=== PATIENT | female | born 1940 | race Hispanic/Latino ===

== ENCOUNTER 2019-09-03 14:31 | Outpatient (CLI) | payer MEDICARE ==
--- NOTE | 2019-09-03 15:21 | XRay Report ---
CHEST 2 VIEWS INDICATION: EPIGASTRIC PAIN. COMPARISON: None FINDINGS: Support devices: None. Heart: Within normal limits. Lungs/pleura: No acute air space or interstitial disease. No pneumothorax. Additional findings: A large hiatal hernia containing a fluid level is noted posterior to the heart. IMPRESSION: Large hiatal hernia, otherwise, unremarkable chest films Signer Name: Shahab Felix Jr, MD Signed: 09/03/2019 3:17 PM Workstation Name: [id number]
== END 2019-09-03 14:32 | disposition home or self-care (01) ==
LOC: SPVIMAG 14:31
PROVIDERS: ATTEND Internal Medicine Hematology & Oncology
DX: C50.811 Malignant neoplasm of overlapping sites of right female breast (principal); R10.13 Epigastric pain; K44.9 Diaphragmatic hernia without obstruction or gangrene
CPT/HCPCS: 71046

== ENCOUNTER 2019-09-17 10:37 | Outpatient (CLI) | payer MEDICARE ==
--- NOTE | 2019-09-18 11:00 | Mammography Report ---
DIGITAL SCREENING MAMMOGRAM WITH TOMOSYNTHESIS WITH CAD, 09/17/2019 INDICATION: Routine Screening Mammography. H/O RIGHT BREAST CA. Status post right mastectomy. TECHNIQUE: Digital left 2D and 3D mammography with tomosynthesis was obtained in the craniocaudal an d mediolateral oblique projections. Computer-Aided Detection (CAD) analysis was used for interpretat ion of this study. COMPARISON: 08/25/2016 FINDINGS: Breast Density: The breast is almost entirely fatty. There is no evidence of dominant mass, suspicious calcifications or architectural distortion in the l eft breast. IMPRESSION: No mammographic evidence of malignancy. Follow up recommendation: Routine yearly BI-RADS Category 1: Negative. A "normal" or negative report should not discourage follow up or biopsy of a clinically significant f inding. A written summary of these findings will be mailed to the patient. The patient will be entered into a mammography reporting system which will generate a reminder letter for the patient's next appointmen t at the appropriate interval. The [employer] recommends yearly mammograms starting at age 40 and continuing as l radha as a woman is in good health. Breast MRI is recommended for women with an approximate 20-25% or greater lifetime risk of breast cancer, including women with a strong family history of breast or ova peter cancer or who have been treated for Hodgkin's disease. Signer Name: John Ann MD Signed: 09/18/2019 10:56 AM Workstation Name: [id number]
== END 2019-09-17 10:38 | disposition home or self-care (01) ==
LOC: SPVWC 10:37
PROVIDERS: ATTEND Internal Medicine Hematology & Oncology
DX: Z12.31 Encounter for screening mammogram for malignant neoplasm of breast (principal); M81.0 Age-related osteoporosis without current pathological fracture; R10.13 Epigastric pain; R30.0 Dysuria; Z17.0 Estrogen receptor positive status [ER+]
CPT/HCPCS: 77063; G0279